=== PATIENT | female | born 1985 | race Hispanic/Latino ===

== ENCOUNTER 2016-11-22 08:56 | Day surgery (SDC) | payer OTHER ==
[2016-11-21 14:48] VITALS: BMI 19.7
[2016-11-22 09:36] LABS: HEMATOCRIT 42.4 % (34.0-47.0); MEAN CELL VOLUME 89.7 fl (81.0-99.0); MEAN CORPUSCULAR HEMOGLOBIN 29.8 pg (27.0-31.0); MEAN CORPUSCULAR HGB CONC 33.3 g/dL (33.0-37.0)
[2016-11-22 09:42] VITALS: RESP 18
[2016-11-22] MEDS ORDERED: Propofol 10 mg/ml Inj (20 ML) ONE (12:07)
[2016-11-22] MEDS ORDERED: Midazolam 2 MG/2 ML VIAL ONE (12:07)
[2016-11-22] MEDS ORDERED: ePHEDrine 50 mg/ml Inj ONE (12:07)
[2016-11-22] MEDS ORDERED: Lidocaine 4% (Laryng-O-Jet) Kit MM ONE (12:10)
[2016-11-22] MEDS ORDERED: Oxytocin 10 Units/ml Inj ONE (12:30)
[2016-11-22] MEDS ORDERED: Strong Iodine Topical Sol. 5%-10% ONE (12:31)
[2016-11-22] MEDS ORDERED: Ferric Subsulfate Sol(60 mL) ONE (12:31)
[2016-11-22] MEDS ORDERED: Lactated Ringer's 1,000 ML IV ONE ×2 (13:07)
[2016-11-22] MEDS ORDERED: Dexamethasone 4 mg/1 ml ONE (13:21)
[2016-11-22] MEDS ORDERED: Lactated Ringer's 500 ML IV ONE (13:40)
[2016-11-22] MEDS ORDERED: OXYTOCIN IV SCH (14:03)
[2016-11-22] MEDS ORDERED: LR IV SCH (14:03)
[2016-11-22] MEDS ORDERED: Lactated Ringer's 1,000 ML IV SCH (14:11)
[2016-11-22] MEDS ORDERED: HYDROmorphone 0.5 mg/0.5 ml ISec IVP PRN (14:11)
[2016-11-22] MEDS ORDERED: Oxytocin 30 units/LR 500ML 30 U/500 ML BAG IV ONE (14:12)
[2016-11-22 15:00] VITALS: O2SAT 99
[2016-11-22] MEDS ORDERED: OXYTOCIN IV ONE (15:45)
[2016-11-22] MEDS ORDERED: Oxytocin 20 UNITS in Lactated Ringer's 500 ML IM ONE (15:45)
[2016-11-22] MEDS ORDERED: LACTATED RINGERS IV ONE (15:45)
[2016-11-22 16:06] VITALS: BP 101/62; PULSE 72; TEMP 97.6
--- NOTE | 2016-11-23 20:47 | OP ---
PROCEDURE DATE: 11/22/2016 PREOPERATIVE DIAGNOSIS: Missed . POSTOPERATIVE DIAGNOSIS: Missed , pending pathology. SURGEON: Dominick Boggs MD ANESTHESIA: Dr. Mcdonald, general anesthesia. PROCEDURE: Dilatation, curettage and suction. ESTIMATED BLOOD LOSS: About 150 mL. DESCRIPTION OF PROCEDURE: With the patient in the dorsal lithotomy position under general anesthesia, the patient was prepped and draped in the usual sterile manner. The straight catheter was used to empty the bladder after which the weighted speculum was placed in the posterior vagina. Anterior cervix was grasped with single-tooth tenaculum and dilated. The cervix was then grasped anteriorly and suctioned curettage was used obtaining large amount of tissue and about 150 to 200 mL of blood. A curettage was done with suction and then sharp curettage. After this was done, hemostasis was maintained. The instruments were removed from the cervix and the vagina. The patient tolerated procedure well and was in satisfactory condition on her way to recovery room. Dominick Boggs MD
== END 2016-11-22 16:45 | disposition home or self-care (01) ==
LOC: H.OPSURG 08:56
PROVIDERS: ATTEND Specialist
DX: O02.1 Missed abortion (principal)
CPT/HCPCS: 36415; 59820; 85027; 86850; 86900; 88305; J1100; J2250; J2405; J2590; J2704; J3010; J7030; J7120

== ENCOUNTER 2017-06-12 11:15 | Emergency (ER) | payer OTHER ==
[2017-06-12 11:15] VITALS: BMI 19.7
[2017-06-12 11:28] VITALS: BP 131/79; PULSE 84; RESP 16; TEMP 97.7; O2SAT 99
[2017-06-12 13:23] LABS: HEMOGLOBIN 13.9 g/dL (12.0-16.0); MEAN CELL VOLUME 90.8 fl (81.0-99.0); MEAN CORPUSCULAR HEMOGLOBIN 30.5 pg (27.0-31.0); MEAN CORPUSCULAR HGB CONC 33.6 g/dL (33.0-37.0); RBC 4.57 Mil/uL (3.80-5.20); RED CELL DISTRIBUTION WIDTH 13.6 % (11.5-14.5); WHITE BLOOD COUNT 7.8 K/uL (4.8-10.8)
--- NOTE | 2017-06-12 14:14 | ED PDOC ---
HPI: Female Pain Time Seen by Provider: 06/12/17 11:52 Chief Complaint (Nursing): Female Genitourinary Chief Complaint (Provider): Vaginal bleeding History Per: Patient History/Exam Limitations: no limitations Onset/Duration Of Symptoms: Days (x1 week) Current Symptoms Are (Timing): Still Present Quality Of Discomfort: Cramping Associated Symptoms: denies: Back Pain, Other (dizziness) Additional Complaint(s): Sonali Key is a 31 year old female, with no significant past medical history , who presents to the emergency department complaining of vaginal bleeding onset for x1 week. Patient reports she passed clots and what she thinks are products of the embryo. She is also reporting a mild cramping in the lower abdomen, and mild bleeding at this time. Patient had an ultrasound before and is supposed to be x6 weeks according to the ultrasound. Last ultrasound showed she had a demise and now she thinks she miscarriage. She denies any back pain, dizziness or syncope. No further medical complaints. PMD: None provided. : 2 Para: 0 Miscarriage: 2 Past Medical History Reviewed: Historical Data, Nursing Documentation, Vital Signs Vital Signs: Last Vital Signs Temp 97.7 F 06/12/17 11:25 Pulse 84 06/12/17 11:25 Resp 16 06/12/17 11:25 BP 131/79 06/12/17 11:25 Pulse Ox 99 06/12/17 11:25 - Medical History PMH: No Chronic Diseases - Surgical History Surgical History: No Surg Hx - Family History Family History: States: Unknown Family Hx - Home Medications Home Medications: Ambulatory Orders Medication Instructions Recorded Multivit/Folic Acid/I 1 tab PO DAILY 06/13/17 [ Plus] - Allergies Allergies/Adverse Reactions: Allergies Allergy/AdvReac Type Severity Reaction Status Date / Time No Known Allergies Allergy Verified 06/13/17 11:36 Review of Systems ROS Statement: Except As Marked, All Systems Reviewed And Found Negative Gastrointestinal: Positive for: Abdominal Pain (lower cramping) Genitourinary Female: Positive for: Vaginal Bleeding (mild) Musculoskeletal: Negative for: Back Pain Neurological: Negative for: Dizziness, Other (syncope) Physical Exam - Reviewed Nursing Documentation Reviewed: Yes Vital Signs Reviewed: Yes - Physical Exam Appears: Positive for: Well, Non-toxic, No Acute Distress Head Exam: Positive for: ATRAUMATIC, NORMAL INSPECTION, NORMOCEPHALIC Skin: Positive for: Normal Color, Warm, Dry Eye Exam: Positive for: Normal appearance, EOMI, PERRL Neck: Positive for: Painless ROM, Supple Cardiovascular/Chest: Positive for: Regular Rate, Rhythm. Negative for: Murmur Respiratory: Positive for: Normal Breath Sounds. Negative for: Respiratory Distress Gastrointestinal/Abdominal: Positive for: Normal Exam, Soft. Negative for: Tenderness, Guarding, Rebound Back: Positive for: Normal Inspection. Negative for: L CVA Tenderness, R CVA Tenderness, Vertebral Tenderness Extremity: Positive for: Normal ROM (upper and lower extremities). Negative for : Tenderness, Deformity, Swelling Neurologic/Psych: Positive for: Alert, Oriented. Negative for: Motor/Sensory Deficits - Laboratory Results Result Diagrams: 06/12/17 13:18 - ECG O2 Sat by Pulse Oximetry: 99 (RA) Pulse Ox Interpretation: Normal Medical Decision Making Medical Decision Making: Initial Impression: Complete vs incomplete miscarriage. Initial Plan: -- serum --Urine dipstick --CBC --OB Transvaginal [US] --Reevaluation Scribe Attestation: Documented by Martín Mera, acting as a scribe for Pito Sinclair MD Provider Scribe Attestation: All medical record entries made by the Scribe were at my direction and personally dictated by me. I have reviewed the chart and agree that the record accurately reflects my personal performance of the history, physical exam, medical decision making, and the department course for this patient. I have also personally directed, reviewed, and agree with the discharge instructions and disposition. Disposition - Clinical Impression Clinical Impression: Incomplete miscarriage - Patient ED Disposition Is Patient to be Admitted: Transfer of Care Counseled Patient/Family Regarding: Studies Performed, Diagnosis - Disposition Referrals: Dominick Boggs MD [Staff Provider] - 06/13/17 Disposition: Transfer of Care Disposition Time: 15:00 Condition: STABLE Additional Instructions: FOLLOW UP WITH DR CARL TOMORROW SCHEDULED RETURN TO ER FOR BLEEDING MORE THAN ONE PAD AN HOUR, FAINTING OR NEAR FAINTING, INTRACTABLE PAIN, OR ANY OTHER WORRISOME SYMPTOMS Instructions: Dealing With Miscarriage Patient Signed Over To: Tanika Moss
--- NOTE | 2017-06-12 15:38 | US ---
PROCEDURE: Trimester ultrasound HISTORY: vagina bleeding miscarriage? LMP 03/19/2017. Beta HCG results: Unknown COMPARISON: None available. TECHNIQUE: Standard protocol for this study/examination. FINDINGS: All irregular gestational sac mean diameter 2.2 cm. This corresponds to gestational age 6 weeks 6 days. Adjacent tiny cystic structure 2 x 3 mm. No pole or yolk sac identified. Right ovary 1.6 x 2.7 x 2.8 cm. Color Doppler flow documented. Left ovary 1.8 x 2.6 x 2.7 cm. Color Doppler arterial flow documented. Closed cervix. IMPRESSION: Irregular gestational sac without yolk sac or pole. Findings likely represent intrauterine demise. No visible ectopic gestation. Move
--- NOTE | 2017-06-12 16:09 | ED PDOC ---
- Laboratory Results Result Diagrams: 06/12/17 13:18 - ECG O2 Sat by Pulse Oximetry: 99 (RA) - Progress ED Course And Treament: 3p Rec'd endorsement from Dr Sinclair. Pt with miscarriage, passed tissue which is being sent to cytology. Pending US and Dr Lamb to be called for further instruction. 350p Reviewed preliminary reading with Dr Lamb. Pt to be discharge to have D& C tomorrow Accession No. : [id number] Patient Name / ID : ALESSANDRO Oconnor / [id number] Exam Date : 06/12/2017 14:50:54 ( Approved ) Study Comment : Sex / Age : F / 31Y Creator : Abner Bolton MD Dictator : Abner Bolton MD Resource Specialist : Statistical Machine Servicer : Abner Bolton MD Approver2 : Report Date : 06/12/2017 15:36:31 My Comment : PROCEDURE: Trimester ultrasound HISTORY: vagina bleeding miscarriage? LMP 03/19/2017. Beta HCG results: Unknown COMPARISON: None available. TECHNIQUE: Standard protocol for this study/examination. FINDINGS: All irregular gestational sac mean diameter 2.2 cm. This corresponds to gestational age 6 weeks 6 days. Adjacent tiny cystic structure 2 x 3 mm. No pole or yolk sac identified. Right ovary 1.6 x 2.7 x 2.8 cm. Color Doppler flow documented. Left ovary 1.8 x 2.6 x 2.7 cm. Color Doppler arterial flow documented. Closed cervix. IMPRESSION: Irregular gestational sac without yolk sac or pole. Findings likely represent intrauterine demise. No visible ectopic gestation. Move DW pt findings and plan of care. Reviewed reasons to RTER. Bleeding precautions given. Disposition - Clinical Impression Clinical Impression: Incomplete miscarriage - POA Present On Arrival: None - Disposition Referrals: Dominick Boggs MD [Staff Provider] - 06/13/17 Disposition: Routine/Home Disposition Time: 16:10 Condition: STABLE Additional Instructions: FOLLOW UP WITH DR CARL TOMORROW SCHEDULED RETURN TO ER FOR BLEEDING MORE THAN ONE PAD AN HOUR, FAINTING OR NEAR FAINTING, INTRACTABLE PAIN, OR ANY OTHER WORRISOME SYMPTOMS Instructions: Dealing With Miscarriage
== END 2017-06-12 17:02 | disposition home or self-care (01) ==
LOC: H.ER 11:15
DX: O03.4 Incomplete spontaneous abortion without complication (principal)

== ENCOUNTER 2017-06-13 11:00 | Day surgery (SDC) | payer OTHER ==
[2017-06-13 11:11] VITALS: BMI 19.5
[2017-06-13 12:01] LABS: BASO # 0.1 K/uL (0.0-0.2); BASO % 1.2 % (0.0-2.0); EOS % 0.8 % (0.0-4.0); HEMOGLOBIN 13.5 g/dL (12.0-16.0); LYMPH # 1.6 K/uL (1.0-4.3); LYMPH % 29.5 % (20.0-40.0); MEAN CELL VOLUME 90.5 fl (81.0-99.0); MEAN CORPUSCULAR HEMOGLOBIN 30.8 pg (27.0-31.0); MEAN CORPUSCULAR HGB CONC 34.1 g/dL (33.0-37.0); MEAN PLATELET VOLUME 9.1 fl (7.2-11.7); MONO # 0.4 K/uL (0.0-0.8); MONO % 7.7 % (0.0-10.0); NEUT # 3.2 K/uL (1.8-7.0); NEUT % 60.8 % (50.0-75.0); NRBC % 0.1 % (0.0-0.0); RBC 4.37 Mil/uL (3.80-5.20); RED CELL DISTRIBUTION WIDTH 13.5 % (11.5-14.5); WHITE BLOOD COUNT 5.3 K/uL (4.8-10.8)
[2017-06-13] MEDS ORDERED: Midazolam 2 MG/2 ML VIAL ONE (12:35)
[2017-06-13] MEDS ORDERED: Propofol 10 mg/ml Inj (20 ML) ONE (12:35)
[2017-06-13] MEDS ORDERED: Silver Nitrate Topical - Stick ONE (12:42)
[2017-06-13] MEDS ORDERED: Strong Iodine Topical Sol. 5%-10% ONE (12:42)
[2017-06-13] MEDS ORDERED: Ferric Subsulfate Sol(60 mL) ONE (12:43)
[2017-06-13] MEDS ORDERED: cefOXitin IV 1 gm in Dextrose 0 GM/0 ML BAG IVPB ONE (12:43)
[2017-06-13] MEDS ORDERED: Lactated Ringer's 1,000 ML IV ONE (14:05)
[2017-06-13] MEDS ORDERED: Dexamethasone 4 mg/1 ml ONE (14:21)
[2017-06-13] MEDS ORDERED: ePHEDrine 50 mg/ml Inj ONE (14:23)
[2017-06-13] MEDS ORDERED: Morphine 4 MG/ML VIAL IVP PRN (14:56)
[2017-06-13] MEDS ORDERED: Dexamethasone 4 mg/1 ml IVP PRN (14:56)
[2017-06-13] MEDS ORDERED: Oxycodone/Acetaminophen 5/325 mg Tab PO PRN (15:19)
[2017-06-13 15:38] VITALS: RESP 18
[2017-06-13 16:05] VITALS: O2SAT 100
[2017-06-13 16:54] VITALS: BP 118/76; PULSE 68; TEMP 98.4
--- NOTE | 2017-06-17 07:04 | OP ---
PROCEDURE DATE: 06/13/2017 PREOPERATIVE DIAGNOSIS: Missed . POSTOPERATIVE DIAGNOSIS: Missed , pending pathology. PROCEDURE: Evacuation and curettage. SURGEON: Dominick Boggs MD TYPE OF ANESTHESIA: General anesthesia. ANESTHESIA ADMINISTERED BY: Dr. Saucedo DESCRIPTION OF PROCEDURE: With the patient in the dorsal lithotomy position under general anesthesia, the patient was prepped and draped in the usual sterile manner. The straight catheter was used to empty the bladder, after which the the patient was examined under anesthesia. seem to be tissue was protruding to the cervix and was removed and given to the assistant professor of nursing nurse. After this was done, the curettage was done and tissue was removed. There were large amount of tissue and curetting and was collected and sent to the lab. The hemostasis was maintained after giving a little Pitocin. After this was done, the patient was transferred to recovery room in satisfactory condition. Dominick Boggs MD
== END 2017-06-13 17:05 | disposition home or self-care (01) ==
LOC: H.OPSURG 11:00
PROVIDERS: ATTEND Specialist
DX: O02.1 Missed abortion (principal)
CPT/HCPCS: 36415; 59820; 85025; 86850; 86900; 88305; J1100; J2001; J2250; J2704; J2765; J3010; J7030; J7120